=== PATIENT | male | born 1990 | race African-American/Black ===

== ENCOUNTER 2019-08-03 20:14 | Emergency (ER) | payer MEDICAID ==
[~2019-08-03] VITALS: Ht 180.3 cm; Wt 85.0 kg
[2019-08-03 20:24] VITALS: BP 108/63
[2019-08-03] MEDS ORDERED: IBUPROFEN 800MG TABLET PO ONE (21:45)
[2019-08-03] MEDS ORDERED: ACETAMINOPHEN 500MG TABLET PO ONE (21:45)
== END 2019-08-03 23:18 | disposition home or self-care (01) ==
LOC: ER 20:14
DX: M25.511 Pain in right shoulder (principal); F17.200 Nicotine dependence, unspecified, uncomplicated; F12.10 Cannabis abuse, uncomplicated
CPT/HCPCS: 99281